=== PATIENT | male | born 1980 | race Caucasian/White ===

== ENCOUNTER 2025-03-25 04:36 | Emergency (ER) | payer OTHER, SELFPAY ==
[2025-03-25 05:30] VITALS: BP 144/92; PULSE 82; RESP 16; TEMP 37.2; O2SAT 96
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
[2025-03-25 06:04] LABS: D Dimer High Sensitivity < 150 NG/ML
[2025-03-25 06:09] LABS: Alanine Aminotransferase 78 U/L (0-40); Albumin Level 4.0 g/dL (3.5-5.0); Alkaline Phosphatase 71 U/L (39-117); Anion Gap 16 (12-20); Aspartate Amino Transferase 77 U/L (5-37); Blood Urea Nitrogen 7 mg/dL (9-16); Calcium 8.7 mg/dL (8.4-10.2); Carbon Dioxide 20 mmol/L (22-29); Chloride 101 mmol/L (96-108); Estimated Glomerular Filt Rate > 60; Potassium 4.1 mmol/L (3.3-5.1); Sodium 133 mmol/L (135-145); Total Protein 7.5 g/dL (6.5-8.0)
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
[2025-03-25 06:29] LABS: Hematocrit 36.8 % (42.0-52.0); Hemoglobin 12.8 g/dl (14.0-18.0); Imm Gran Abs Auto 0.14 X10*3/uL (0.00-0.03); Imm Gran Pct Auto 1.2 % (0.0-0.4); Lymphocytes Absolute Auto 2.1 X10*3/uL (1.2-4.9); MANUAL DIFF FLAG SCAN; Mean Corpuscular HGB Conc 34.8 g/dl (31.0-36.0); Mean Corpuscular Hemoglobin 32.0 pg (27.0-33.0); Mean Corpuscular Volume 92.0 fL (80.0-98.0); NRBC Abs Auto 0.000 X10*3/uL (0.0-0.012); NRBC Pct Auto 0.0 /100WBC (0.0-0.2); Platelet Count 210 X10*3/uL (160-400); Red Blood Count 4.00 X10*6/uL (4.60-5.80); SCAN SMEAR FLAG 1; White Blood Count 12.1 X10*3/uL (4.8-10.8)
[2025-03-25 06:59] VITALS: BP 146/76; PULSE 79; RESP 16; TEMP 36.9; O2SAT 97
[2025-03-25 07:05] VITALS: BP 146/76; PULSE 79; RESP 16; TEMP 36.9; O2SAT 97
== END 2025-03-25 06:52 | disposition home or self-care (01) ==
PROVIDERS: Emergency Provider Emergency Medicine
DX: L03.115 Cellulitis of right lower limb (principal)
CPT/HCPCS: 36415; 80053; 83605; 85025; 85379; 87040; 96374; 99284; 99291; J1885